=== PATIENT | female | born 1985 | race American Indian/Alaskan Native ===

== ENCOUNTER 2016-04-28 19:19 | Emergency (ER) | payer SELFPAY ==
--- NOTE | 2016-04-28 23:09 | Emergency Department Report ---
- General Chief Complaint: Upper Respiratory Infection Stated Complaint: POSS POSITIVE PPD Time Seen by Provider: 04/28/16 23:04 Source: patient Mode of arrival: Ambulatory Limitations: No Limitations - History of Present Illness Initial Comments: 31-year-old female comes in for concern for a possible PPD. Patient reports that she was in [facility] one week ago on 04/18/16 and had a PPD placed. The PPD placed she noticed that the area was on a firm and itchy. Patient admits to cough that had blood streaked 1. She does also report that she has a cough but feels that she's clearing of her throat. She's lost some weight. Denies any night sweats or fever or chills. She has no other medical problems. Reports she is not HIV positive. Complaint: cough - Related Data Allergies Allergy/AdvReac Type Severity Reaction Status Date / Time No Known Allergies Allergy Unverified 12/06/15 10:45 ED Review of Systems ROS: Stated complaint: POSS POSITIVE PPD Other details as noted in HPI ED Past Medical Hx - Past Medical History Previous Medical History?: (report) - Social History Smoking Status: Current Every Day Smoker Substance Use Type: Alcohol ED Physical Exam - General Limitations: No Limitations General appearance: alert, in no apparent distress - Eye Eye exam: Present: normal appearance Pupils: Present: normal accommodation - ENT ENT exam: Present: normal exam - Respiratory Respiratory exam: Present: normal lung sounds bilaterally - Cardiovascular Cardiovascular Exam: Present: tachycardia, normal heart sounds - Skin Skin exam: Present: other (left forearm, notice where the PPD was placed over induration no erythematous nonerythematous.) ED Course Vital Signs 04/28/16 20:10 Temperature 98.6 F Pulse Rate 104 H Respiratory 18 Rate Blood Pressure 139/98 O2 Sat by Pulse 100 Oximetry ED Medical Decision Making - Radiology Data Radiology results: image reviewed FINAL REPORT EXAM: XR CHEST ROUTINE 2V HISTORY: COUGH/ POSS POSITIVE PPD TECHNIQUE: Frontal and lateral chest x-ray. PRIORS: None. FINDINGS: Cardiac and mediastinal silhouette within normal limits. Lungs are normally expanded. No focal consolidation, pleural effusions or apparent pneumothorax. IMPRESSION: 1. No acute consolidation. - Medical Decision Making Patient's been evaluated by this provider. Chest x-ray was ordered waiting for the results. She is in a mask. Discussed with Dr. Sorto. Since patient is asymptomatic chest x-ray comes back negative she is able to be discharged and have follow with her primary care provider. Recheck patient's pulse 76. Review of chest x-ray shows that there is no acute consolidation. Critical care attestation.: If time is entered above; I have spent that time in minutes in the direct care of this critically ill patient, excluding procedure time. ED Disposition Clinical Impression: Normal exam Disposition: DISCHARGED TO HOME OR SELFCARE Is pt being admited?: No Does the pt Need Aspirin: No Condition: Stable Instructions: Normal Exam (ED) Referrals: [facility]IMARY [facility] [Primary Care Provider] - 3-5 Days [facility] [Provider Group] - 3-5 Days
--- NOTE | 2016-04-28 23:44 | XRay Report ---
FINAL REPORT EXAM: XR CHEST ROUTINE 2V HISTORY: COUGH/ POSS POSITIVE PPD TECHNIQUE: Frontal and lateral chest x-ray. PRIORS: None. FINDINGS: Cardiac and mediastinal silhouette within normal limits. Lungs are normally expanded. No focal consolidation, pleural effusions or apparent pneumothorax. IMPRESSION: 1. No acute consolidation.
[2016-04-29 00:14] VITALS: BP 149/87
== END 2016-04-29 00:14 | disposition home or self-care (01) ==
LOC: ED 19:19
DX: L29.9 Pruritus, unspecified (principal); R05 Cough; F17.200 Nicotine dependence, unspecified, uncomplicated
CPT/HCPCS: 71020; 99283